=== PATIENT | female | born 1955 | race Caucasian/White ===

== ENCOUNTER 2023-10-31 06:41 | Emergency (ER) | payer MEDICARE, SELFPAY ==
[2023-10-31] VITALS (11 sets, daily range): BP systolic 131–184; BP diastolic 62–84; PULSE 54–68; RESP 18–20; TEMP 36.4; O2SAT 84–100; BMI 30.9
--- NOTE | 2023-10-31 06:51 | DI.CT.S_ITS ---
PROCEDURE: CT ABDOMEN PELVIS W CON INDICATIONS: LLQ ABD PAIN, N/V TECHNIQUE: After the administration of intravenous contrast, axial sections acquired from the lung bases to the pubic symphysis. Coronal and sagittal reformats were performed. For radiation dose reduction, the following was used: automated exposure control, adjustment of mA and/or kV according to patient size. COMPARISON: None. FINDINGS: Image quality: Diagnostic. Lower Chest: Small hiatal hernia. No pleural effusion. ABDOMEN: Liver: No solid mass. Gallbladder: No radiopaque gallstones or wall thickening. Biliary ducts: No biliary dilation. Pancreas: No ductal dilation. Spleen: Size is within normal limits. Adrenal Glands: Right adrenal nodule measuring 2.1 cm, (2/25). Lower density. 2nd right adrenal nodule measuring 0.7 cm, (2/27). Kidneys and Ureters: Obstructing calculus at the left UVJ measuring 0.3 cm, (2/73). Minimal left hydroureter. Mild left hydronephrosis. Minimal left perinephric stranding. No right hydronephrosis. Punctate nonobstructing right kidney stone. No solid mass. No complex renal cystic lesion which requires follow up. Stomach and Bowel: Normal colonic caliber, without significant wall thickening. A few colonic diverticuli. Medication tablet in the colon. Clips in the right lower quadrant the appendix is not seen. Peritoneum: No abnormal intraperitoneal fluid. No free air. Ventral Wall: No significant ventral hernia. Abdominal Nodes: No retroperitoneal or mesenteric adenopathy by size criteria. Vessels: Aorta and inferior vena cava are normal in size. PELVIS: Pelvic Organs: Anteverted uterus. Calcified uterine fibroids. Bladder: No stone. Pelvic Nodes: No enlarged lymph nodes. Miscellaneous: No inguinal hernias are seen. 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 Bones: No aggressive osseous abnormality. L4 intraosseous hemangioma. IMPRESSION: 1. Obstructing calculus at the left UVJ measuring 0.3 cm. Mild left hydronephrosis. 2. Punctate nonobstructing right kidney stone. 3. Right adrenal nodule measuring 2.1 cm. Indeterminate. This could be further characterized with adrenal protocol washout CT or MRI. Dictated by: Ayaz Soriano M.D. on 10/31/2023 at 8:07 Approved by: Ayaz Soriano M.D. on 10/31/2023 at 8:15
[2023-10-31] MEDS: ONDANSETRON 4 MG/2 ML INJ IV (07:02)
[2023-10-31] MEDS: SODIUM CHLORIDE 0.9% 1,000 ML 1000 ML IV (07:04)
[2023-10-31] MEDS: MORPHINE 4 MG/ML INJ IV (07:04)
[2023-10-31 07:05] LABS: Add Manual Diff / Slide Review NO; Basophils Absolute Auto 0 /uL (0-100); Basophils Percent Auto 0.3 % (0-2); Eosinophils Absolute Auto 100 /uL (0-450); Eosinophils Percent Auto 0.9 % (2-4); Hematocrit 41.7 % (36-46); Lymphocytes Absolute Auto 2000 /uL (1100-4500); Lymphocytes Percent Auto 18.7 % (25-40); Mean Corpuscular HGB Conc 33.6 % (30-36); Mean Corpuscular Hemoglobin 30.1 PG (26-34); Mean Corpuscular Volume 89.7 fL (80-100); Monocytes Absolute Auto 600 /uL (0-900); Monocytes Percent Auto 5.4 % (3-14); Neutrophils Absolute Auto 8100 /uL (1500-7000); Neutrophils Percent Auto 74.7 % (50-75); Platelet Count 272 X10^3/uL (150-400); Red Blood Cell Count 4.65 X10^6/uL (4.0-5.2); Red Cell Distribution Width 14.1 % (11.6-14.8); White Blood Cell Count 10.8 X10^3/uL (4.5-11.0)
[2023-10-31 07:20] LABS: Lactate (Lactic Acid) 2.6 mmol/L (0.7-2.1); Lipase 57 U/L (23-300)
[2023-10-31 07:22] LABS: Alanine Aminotransferase 26 IU/L (<35); Albumin 3.9 g/dL (3.5-5.0); Albumin Globulin Ratio 1.4 (1.0-2.8); Alkaline Phosphatase 93 U/L (38-126); Aspartate Aminotransferase 25 IU/L (14-36); BUN Creatinine Ratio 26.3 (6-22); Bilirubin Total 0.5 mg/dL (0.2-1.3); Blood Urea Nitrogen 15 mg/dL (7-17); Carbon Dioxide 28 mmol/L (22-32); Chloride 109 mmol/L (98-107); Estimated Glomerular Filt Rate > 60 mL/min (>60); Globulin 2.8 g/dL (1.7-4.1); Glucose 153 mg/dL (80-110); HEMOLYSIS < 15 (0-50); Potassium 3.7 mmol/L (3.4-5.1); Sodium 140 mmol/L (137-145); Total Protein 6.7 g/dL (6.3-8.2)
[2023-10-31 07:28] LABS: Appearance Urine UA CLEAR; Bilirubin Urine UA NEGATIVE (NEGATIVE); Color Urine UA YELLOW; Glucose Urine UA NEGATIVE (Negative); Ketones Urine UA NEGATIVE (NEGATIVE); Leukocyte Esterase Urine UA NEGATIVE (NEGATIVE); Nitrite Urine UA NEGATIVE (Negative); Occult Blood Urine UA 1+ (Negative); Protein Urine UA TRACE (Negative); Specific Gravity Urine UA >=1.030 (1.000-1.035); Urobilinogen Urine UA 0.2 E.U./dL (0.2)
[2023-10-31 07:31] LABS: Urine Volume 10mL (spun); pH Urine UA 5.5 (4.5-8.0)
[2023-10-31 07:34] LABS: Bacteria Urine None Seen; Culture Indicated Urine Cult Not Indicated; Mucus Urine 1+ (Negative); RBC Urine 1-5/HPF (0-5/HPF); Squamous Epithelial Cell Urine 1-5 /HPF (0-5/HPF); WBC Urine 0-1/HPF (0-5/HPF)
[2023-10-31] MEDS: DROPERIDOL 5 MG/2 ML VIAL 0.625 MG IV (07:50)
[2023-10-31] MEDS: HYDROMORPHONE 0.5 MG INJ IV (07:51)
--- NOTE | 2023-10-31 08:00 | ED_ITS ---
HPI - Abdominal Pain General Chief Complaint: Abdominal Pain Stated Complaint: abd pain Time Seen by Provider: 10/31/23 06:51 Source: patient Mode of arrival: Ambulatory History of Present Illness HPI narrative: This is a 60-year-old female here with the sudden onset of left lower quadrant abdominal pain approximately 3 hours prior to being seen. Describes it as a feeling of ?gas? is accompanied by nausea and vomiting she did not have fevers. Says that she has a sensation of needing to urinate as well. No recent changes in her bowel habits no hematuria had a bowel movement this morning. Still having pain when seen is also still nauseated. Past surgical history remarkable for oophorectomy, no other abdominal surgeries she is unsure of the laterality of her previous oophorectomy. Medical history is otherwise unremarkable without chronic disease or anticoagulation. Related Data Previous Rx's Medication Instructions Recorded ondansetron 4 mg disintegrating 4 mg PO Q6H PRN nausea and 10/31/23 tablet vomiting #14 tabs oxycodone 5 mg tablet 5 mg PO Q4H PRN pain #14 tabs 10/31/23 tamsulosin 0.4 mg capsule 0.4 mg PO BEDTIME #20 caps 10/31/23 Allergies Allergy/AdvReac Type Severity Reaction Status Date / Time No Known Drug Allergies Allergy Unverified 07/31/19 10:14 Patient History Social History Smoking Status: Never smoker Smoking Status: Never smoker Substance Use Type: does not use Exam Initial Vital Signs Initial Vital Signs: Vital Signs Pulse Rate 64 10/31/23 06:49 Blood Pressure 184/84 H 10/31/23 06:49 Pulse Oximetry 99 10/31/23 06:49 Const General: healthy appearing and No acute distress Resp Effort & Inspection: normal respiratory effort and able to speak in complete sentences Auscultation: clear to auscultation bilaterally Cardio Other: Regular rhythm rate no murmur rub or gallop GI Other: Abdomen is soft with normal bowel sounds. There is no CVAT. She is tender in the left lower quadrant with voluntary guarding no palpable mass Skin Other: Warm and dry Neuro General: patient alert and patient oriented x3 Course Orders Ordered: ED Orders 10/31/23 06:51 CT abdomen pelvis w con Stat 10/31/23 06:52 EKG-12 Lead Stat 10/31/23 06:55 CBC Auto Diff [Complete Blood Count AUTO DIFF] Stat CMP [Comprehensive Metabolic Panel] Stat Lactate (Lactic Acid) Stat Lipase Stat 10/31/23 07:11 UA Complete [Urinalysis and Microscopic] Stat Discontinued Medications Droperidol (Droperidol 5 Mg/2 Ml Vial) 0.625 mg IV NOW ONE Stop: 10/31/23 07:33 Last Admin: 10/31/23 07:50 Dose: 0.625 mg Documented By: WALI Hydromorphone HCl (Hydromorphone 0.5 Mg Inj) 0.5 mg IV NOW ONE Stop: 10/31/23 07:33 Last Admin: 10/31/23 07:51 Dose: 0.5 mg Documented By: WALI Sodium Chloride (Normal Saline 0.9%) 1,000 mls @ 1,000 mls/hr IV BOLUS ONE Stop: 10/31/23 07:50 Last Infusion: 10/31/23 07:51 Dose: Infused Documented By: Admin: 10/31/23 07:04 Dose: 1,000 mls/hr Documented By: Morphine Sulfate (Morphine 4 Mg/Ml Inj) 4 mg IV NOW ONE Stop: 10/31/23 06:52 Last Admin: 10/31/23 07:04 Dose: 4 mg Documented By: Ondansetron HCl (Ondansetron 4 Mg/2 Ml Inj) 4 mg IV NOW ONE Stop: 10/31/23 06:52 Last Admin: 10/31/23 07:02 Dose: 4 mg Documented By: Vital Signs Vital signs: Vital Signs - 8 hr 10/31/23 06:49 10/31/23 06:49 10/31/23 06:54 Temperature 97.6 F Pulse Rate 64 61 Respiratory Rate 18 Blood Pressure 184/84 H 184/84 H Pulse Oximetry 99 100 Oxygen Delivery Method Room Air Oxygen Flow Rate 10/31/23 07:00 10/31/23 07:30 10/31/23 07:59 Temperature Pulse Rate 60 61 67 Respiratory Rate Blood Pressure Pulse Oximetry 98 100 97 Oxygen Delivery Method Oxygen Flow Rate 10/31/23 07:59 10/31/23 08:00 10/31/23 08:30 Temperature Pulse Rate 68 66 Respiratory Rate Blood Pressure 131/62 Pulse Oximetry 96 84 L Oxygen Delivery Method Nasal Cannula Oxygen Flow Rate 2 10/31/23 08:35 10/31/23 09:00 10/31/23 09:30 Temperature Pulse Rate 57 L 56 L Respiratory Rate Blood Pressure Pulse Oximetry 96 97 99 Oxygen Delivery Method Nasal Cannula Oxygen Flow Rate 2 10/31/23 09:49 Temperature Pulse Rate 54 L Respiratory Rate 20 Blood Pressure 131/62 Pulse Oximetry 99 Oxygen Delivery Method Room Air Oxygen Flow Rate MDM - Abdominal Pain Lab Data Lab results narrative: CBC with diff and CMP are unremarkable, urinalysis does not show evidence of infection although surprisingly there was also a little hematuria 10/31/23 06:55 10/31/23 06:55 Labs: Lab Results 10/31/23 10/31/23 10/31/23 Range/Units 06:55 07:11 08:50 WBC 10.8 (4.5-11.0) X10^3/uL RBC 4.65 (4.0-5.2) X10^6/uL Hgb 14.0 (12.0-16.0) g/dL Hct 41.7 (36-46) % MCV 89.7 (80-100) fL MCH 30.1 (26-34) PG MCHC 33.6 (30-36) % RDW 14.1 (11.6-14.8) % Plt Count 272 (150-400) X10^3/uL Neut % (Auto) 74.7 (50-75) % Lymph % (Auto) 18.7 L (25-40) % [place] % (Auto) 5.4 (3-14) % Eos % (Auto) 0.9 L (2-4) % Baso % (Auto) 0.3 (0-2) % Neut # (Auto) 8100 H (8010-9381) /uL Lymph # (Auto) 2000 (6929-5219) /uL [place] # (Auto) 600 (0-900) /uL Eos # (Auto) 100 (0-450) /uL Baso # (Auto) 0 (0-100) /uL Sodium 140 (137-145) mmol/L Potassium 3.7 (3.4-5.1) mmol/L Chloride 109 H (98-107) mmol/L Carbon Dioxide 28 (22-32) mmol/L BUN 15 (7-17) mg/dL Creatinine 0.57 (0.52-1.04) mg/dL Estimated GFR > 60 (>60) mL/min BUN/Creatinine Ratio 26.3 H (6-22) Glucose 153 H (80-110) mg/dL Lactate 2.6 H 1.5 (0.7-2.1) mmol/L Calcium 9.0 (8.4-10.2) mg/dL Total Bilirubin 0.5 (0.2-1.3) mg/dL AST 25 (14-36) IU/L ALT 26 (<35) IU/L Alkaline Phosphatase 93 (38-126) U/L Total Protein 6.7 (6.3-8.2) g/dL Albumin 3.9 (3.5-5.0) g/dL Globulin 2.8 (1.7-4.1) g/dL Albumin/Globulin Ratio 1.4 (1.0-2.8) Lipase 57 (23-300) U/L Urine Color Yellow Urine Appearance Clear Urine pH 5.5 (4.5-8.0) Ur Specific [place] >=1.030 H (1.000-1.035) Urine Protein Trace H (Negative) Urine Glucose (UA) Negative (Negative) g/dL Urine Ketones Negative (NEGATIVE) Urine Occult Blood 1+ H (Negative) Urine Nitrate Negative (Negative) Urine Bilirubin Negative (NEGATIVE) Urine Urobilinogen 0.2 (0.2) E.U./dL Ur Leukocyte Esterase Negative (NEGATIVE) Urine RBC 1-5/hpf (0-5/HPF) Urine WBC 0-1/hpf (0-5/HPF) Ur Squamous Epith Cells 1-5 /hpf (0-5/HPF) Urine Bacteria None seen (None) Urine Mucus 1+ H (Negative) Ur Culture Indicated? Cult not indicated Vol Urine Centrifuged 10ml (spun) Point of care testing: Urine Dip Bedside Urine Glucose Negative Bedside Urine Bilirubin - Negative Bedside Urine Ketone - Negative Urine Specific [place] 1.030 Bedside Urine Occult Blood ++ Bedside Urine pH 6.0 Bedside Urine Protein +/- 15 Bedside Urine Urobilinogen - Negative Bedside Urine Nitrite - Negative Bedside Urine Leukocytes +/- [address] scan - abdomen/pelvis: My Impression: Left hydronephrosis with pelvic calcifications, probable ureteral stone Radiologist's Impression: [address] [address] [address] Scan Report Signed Patient: Ashley Murray MR#: [id number] : 1955 Acct:[id number] Age/Sex: 68 / F Date of Service: 10/31/23 Loc: ED Accession Number: [id number] Procedure: CT abdomen pelvis w con Ordering Provider: Nahed Haro MD PROCEDURE: CT ABDOMEN PELVIS W CON INDICATIONS: LLQ ABD PAIN, N/V TECHNIQUE: After the administration of intravenous contrast, axial sections acquired from the lung bases to the pubic symphysis. Coronal and sagittal reformats were performed. For radiation dose reduction, the following was used: automated exposure control, adjustment of mA and/or kV according to patient size. COMPARISON: None. FINDINGS: Image quality: Diagnostic. Lower Chest: Small hiatal hernia. No pleural effusion. ABDOMEN: Liver: No solid mass. Gallbladder: No radiopaque gallstones or wall thickening. Biliary ducts: No biliary dilation. Pancreas: No ductal dilation. Spleen: Size is within normal limits. Adrenal Glands: Right adrenal nodule measuring 2.1 cm, (2/25). Lower density. 2nd right adrenal nodule measuring 0.7 cm, (2/27). Kidneys and Ureters: Obstructing calculus at the left UVJ measuring 0.3 cm, (2/73). Minimal left hydroureter. Mild left hydronephrosis. Minimal left perinephric stranding. No right hydronephrosis. Punctate nonobstructing right kidney stone. No solid mass. No complex renal cystic lesion which requires follow up. Stomach and Bowel: Normal colonic caliber, without significant wall thickening. A few colonic diverticuli. Medication tablet in the colon. Clips in the right lower quadrant the appendix is not seen. Peritoneum: No abnormal intraperitoneal fluid. No free air. Ventral Wall: No significant ventral hernia. Abdominal Nodes: No retroperitoneal or mesenteric adenopathy by size criteria. Vessels: Aorta and inferior vena cava are normal in size. PELVIS: Pelvic Organs: Anteverted uterus. Calcified uterine fibroids. Bladder: No stone. Pelvic Nodes: No enlarged lymph nodes. Miscellaneous: No inguinal hernias are seen. 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 Bones: No aggressive osseous abnormality. L4 intraosseous hemangioma. IMPRESSION: 1. Obstructing calculus at the left UVJ measuring 0.3 cm. Mild left hydronephrosis. 2. Punctate nonobstructing right kidney stone. 3. Right adrenal nodule measuring 2.1 cm. Indeterminate. This could be further characterized with adrenal protocol washout CT or MRI. Dictated by: Ayaz Soriano M.D. on 10/31/2023 at 8:07 ECG Data Interpretation: ECG shows normal sinus rhythm at [address] segment changes possible old anterior infarct MDM Narrative Medical decision making narrative: 68-year-old woman with left lower quadrant abdominal pain. Differential diagnosis includes pyelonephritis, ureteral stone, diverticulitis, bowel obstruction. The patient is nontoxic with reassuring labs CT shows left hydronephrosis and a left ureteral calculus at the UVJ. She does not appear to have an infection upstream of the stone. I provided prescriptions for oxycodone Flomax and Zofran recommended she follow up with Urology and primary care. Discharge Plan Departure Patient Disposition: Home Clinical Impression: Left ureteral calculus Abdominal pain Qualifiers: Abdominal location: left lower quadrant Qualified Code(s): R10.32 - Left lower quadrant pain Activity Restrictions/Additional Instructions: Emergency department workup shows that you have a left ureteral stone. This is almost certainly the cause of your symptoms. Get adequate fluids, you can use ibuprofen 600 mg up to 3 times a day as needed for pain. Additionally I have sent a prescription for oxycodone to use as needed for pain, ondansetron to use as needed for nausea and tamsulosin which should help the stone pass. Make an appointment to follow up soon with your primary care provider. Strain your urine seeing you know when the stone passes. I have provided contact information for Urology, I recommend that you make an appointment with them also, if the stone passes spontaneously it could be canceled. If you are having uncontrolled pain, frequent vomiting or fevers return to the emergency department. Prescriptions: New oxycodone 5 mg tablet 5 mg PO Q4H PRN (Reason: pain) Qty: 14 0RF tamsulosin 0.4 mg capsule 0.4 mg PO BEDTIME Qty: 20 0RF ondansetron 4 mg tablet,disintegrating 4 mg PO Q6H PRN (Reason: nausea and vomiting) Qty: 14 0RF Stand Alone Forms: Patient Portal/API
--- NOTE | 2023-10-31 08:24 | PC.NURSE ---
Pt states that her nausea has resolved and her abd pain has improved to a 4/10. Pt is sitting upright in bed and a&ox4.
[2023-10-31 08:36] LABS: Reflexed Lactate in 2 Hours Y
[2023-10-31 09:03] LABS: Lactate 2HR (Lactic Acid Rflx) 1.5 mmol/L (0.7-2.1)
== END 2023-10-31 09:50 | disposition home or self-care (01) ==
PROVIDERS: Emergency Medicine; Emergency Provider Emergency Medicine
DX: N20.1 Calculus of ureter (principal); R10.32 Left lower quadrant pain; R11.2 Nausea with vomiting, unspecified
CPT/HCPCS: 36415; 74177; 80053; 81001; 81003; 83605; 83690; 85025; 93005; 93010; 96361; 96374; 96375; 99284; 99285; J1170; J1790; J2270; J2405; Q9967

== ENCOUNTER 2024-10-21 07:02 | Emergency (ER) | payer MEDICARE, SELFPAY ==
[2024-10-21 07:29] VITALS: BP 148/65; PULSE 61; RESP 16; TEMP 36.6; O2SAT 99; BMI 30.9
[2024-10-21 07:49] LABS: Add Manual Diff / Slide Review NO; Basophils Absolute Auto 0 /uL (0-100); Basophils Percent Auto 0.6 % (0-2); Eosinophils Absolute Auto 100 /uL (0-450); Eosinophils Percent Auto 1.8 % (2-4); Hematocrit 43.9 % (36-46); Hemoglobin 14.6 g/dL (12.0-16.0); Lymphocytes Absolute Auto 1800 /uL (1100-4500); Lymphocytes Percent Auto 22.1 % (25-40); Mean Corpuscular HGB Conc 33.2 % (30-36); Mean Corpuscular Volume 90.3 fL (80-100); Monocytes Absolute Auto 500 /uL (0-900); Monocytes Percent Auto 6.1 % (3-14); Neutrophils Absolute Auto 5700 /uL (1500-7000); Neutrophils Percent Auto 69.4 % (50-75); Platelet Count 272 X10^3/uL (150-400); Red Blood Cell Count 4.86 X10^6/uL (4.0-5.2); Red Cell Distribution Width 13.7 % (11.6-14.8); White Blood Cell Count 8.2 X10^3/uL (4.5-11.0)
--- NOTE | 2024-10-21 07:57 | ED_ITS ---
HPI - Abdominal Pain General Chief Complaint: Abdominal Pain Stated Complaint: Per patient , Passing a Kidney stone Time Seen by Provider: 10/21/24 07:47 Source: patient Mode of arrival: Ambulatory History of Present Illness HPI narrative: patient brought here by for acute onset 4:00 a.m. today right flank pain with nausea and sweating. Radiates from right flank to right lower quadrant. History of kidney stone 1 year ago. She was able to pass out. No surgeries. No follow up for Urology. Patient states feels the same pain she did last year. Related Data Previous Rx's Medication Instructions Recorded ondansetron 4 mg disintegrating 4 mg PO Q6H PRN nausea and 10/31/23 tablet vomiting #14 tabs oxycodone 5 mg tablet 5 mg PO Q4H PRN pain #14 tabs 10/31/23 tamsulosin 0.4 mg capsule 0.4 mg PO BEDTIME #20 caps 10/31/23 cefdinir 300 mg capsule 300 mg PO BID #10 caps 10/21/24 hydrocodone 5 mg-acetaminophen 325 1 tab PO Q6H PRN pain #20 tabs 10/21/24 mg tablet ibuprofen 600 mg tablet 600 mg PO Q6H PRN fever or pain 10/21/24 #24 tabs ondansetron 4 mg disintegrating 4 mg PO Q8H PRN nausea and 10/21/24 tablet vomiting #20 tabs tamsulosin 0.4 mg capsule 0.4 mg PO DAILY #7 caps 10/21/24 Allergies Allergy/AdvReac Type Severity Reaction Status Date / Time No Known Drug Allergies Allergy Verified 10/21/24 07:28 Review of Systems Review of Systems Narrative: GENERAL: Negative chills, fatigue, malaise, fever, sweats. HEENT: Negative sinus pain, ear pain, sore throat RESPIRATORY: Negative dyspnea, cough CARDIOVASCULAR: Negative chest pain, palpitations GASTROINTESTINAL: Positive nausea, negative vomiting, positiveabdominal pain : Negative dysuria, frequency, hematuria MUSCULOSKELETAL: Negative muscle or bony pain SKIN: Negative rash, skin lesions NEUROLOGIC: Negative weakness, numbness ROS Unobtainable: All systems reviewed & are unremarkable except as noted in HPI and below Patient History Social History Smoking Status: Never smoker Smoking Status: Never smoker Exam Narrative Exam Narrative: GENERAL: in no distress, not toxic not dyspneic HEAD: Normocephalic. EYES: Pupils equal round ENT: Mucous membranes moist. NECK: Trachea midline. CARDIOVASCULAR: Regular rate and rhythm RESPIRATORY: Clear to auscultation. Breath sounds equal bilaterally. No wheezes, rales, or rhonchi. GASTROINTESTINAL: Abdomen soft, non-tender no peritoneal signs no guarding or rebound. Bowel sounds are present. No CVA tenderness. EXTREMITIES: No gross deformities. BACK: No flank tenderness. NEURO: AOx4. Clear speech SKIN: Warm and dry PSYCH: Not anxious, is cooperative Initial Vital Signs Initial Vital Signs: Vital Signs Temperature 97.9 F 10/21/24 07:29 Pulse Rate 61 10/21/24 07:29 Respiratory Rate 16 10/21/24 07:29 Blood Pressure 148/65 H 10/21/24 07:29 Pulse Oximetry 99 10/21/24 07:29 Oxygen Delivery Method Room Air 10/21/24 07:29 Course Orders Ordered: Discontinued Medications Cefdinir (Cefdinir 300 Mg Capsule) 300 mg PO NOW ONE Stop: 10/21/24 09:07 Last Admin: 10/21/24 09:10 Dose: 300 mg Documented By: MIKE Sodium Chloride (Normal Saline 0.9%) 1,000 mls @ 1,000 mls/hr IV BOLUS ONE Stop: 10/21/24 09:31 Last Admin: 10/21/24 08:38 Dose: 1,000 mls/hr Documented By: MIKE Ketorolac Tromethamine (Ketorolac 30 Mg/Ml Vial) 15 mg IV NOW ONE Stop: 10/21/24 07:57 Last Admin: 10/21/24 08:21 Dose: 15 mg Documented By: MIKE Ondansetron HCl (Ondansetron 4 Mg/2 Ml Inj) 4 mg IV NOW PRN PRN Reason: Nausea And Vomiting Ondansetron HCl (Ondansetron 4 Mg Odt) 4 mg PO NOW PRN PRN Reason: Nausea And Vomiting Tamsulosin HCl (Tamsulosin 0.4 Mg Capsule) 0.4 mg PO NOW ONE Stop: 10/21/24 09:02 Last Admin: 10/21/24 09:10 Dose: 0.4 mg Documented By: MIKE Vital Signs Vital signs: Vital Signs - 8 hr 10/21/24 07:29 Temperature 97.9 F Pulse Rate 61 Respiratory Rate 16 Blood Pressure 148/65 H Pulse Oximetry 99 Oxygen Delivery Method Room Air MDM - Abdominal Pain Lab Data 10/21/24 07:41 10/21/24 07:41 Labs: Lab Results 10/21/24 10/21/24 Range/Units 07:41 08:14 WBC 8.2 (4.5-11.0) X10^3/uL RBC 4.86 (4.0-5.2) X10^6/uL Hgb 14.6 (12.0-16.0) g/dL Hct 43.9 (36-46) % MCV 90.3 (80-100) fL MCH 30.0 (26-34) PG MCHC 33.2 (30-36) % RDW 13.7 (11.6-14.8) % Plt Count 272 (150-400) X10^3/uL Neut % (Auto) 69.4 (50-75) % Lymph % (Auto) 22.1 L (25-40) % [place] % (Auto) 6.1 (3-14) % Eos % (Auto) 1.8 L (2-4) % Baso % (Auto) 0.6 (0-2) % Neut # (Auto) 5700 (3673-4327) /uL Lymph # (Auto) 1800 (0607-7061) /uL [place] # (Auto) 500 (0-900) /uL Eos # (Auto) 100 (0-450) /uL Baso # (Auto) 0 (0-100) /uL Sodium 139 (137-145) mmol/L Potassium 4.4 (3.4-5.1) mmol/L Chloride 106 (98-107) mmol/L Carbon Dioxide 24 (22-32) mmol/L BUN 17 (7-17) mg/dL Creatinine 0.77 (0.52-1.04) mg/dL Estimated GFR > 60 (>60) mL/min BUN/Creatinine Ratio 22.1 H (6-22) Glucose 130 H (80-110) mg/dL Calcium 9.1 (8.4-10.2) mg/dL Total Bilirubin 0.6 (0.2-1.3) mg/dL AST 27 (14-36) IU/L ALT 25 (<35) IU/L Alkaline Phosphatase 89 (38-126) U/L Total Protein 6.9 (6.3-8.2) g/dL Albumin 4.3 (3.5-5.0) g/dL Globulin 2.6 (1.7-4.1) g/dL Albumin/Globulin Ratio 1.7 (1.0-2.8) Lipase 64 (23-300) U/L Urine Color [place] Urine Appearance Cloudy Urine pH 5.0 (4.5-8.0) Ur Specific [place] 1.020 (1.000-1.035) Urine Protein 2+ H (Negative) Urine Glucose (UA) Negative (Negative) g/dL Urine Ketones Trace H (NEGATIVE) Urine Occult Blood 3+ H (Negative) Urine Nitrate Positive H (Negative) Urine Bilirubin 1+ H (NEGATIVE) Ur Bilirubin Confirm Negative (Negative) Urine Urobilinogen 0.2 (0.2) E.U./dL Ur Leukocyte Esterase Negative (NEGATIVE) Urine RBC 30-100/hpf H (0-5/HPF) Urine WBC 1-5/hpf (0-5/HPF) Ur Squamous Epith Cells None seen (0-5/HPF) Urine Bacteria Many (>30) H (None) Ur Culture Indicated? Specimen cultured Vol Urine Centrifuged Low vol <10ml (spun) A Imaging Data CT scan - abdomen/pelvis: Radiologist's Impression: [place] [address] CT Scan Report Signed Patient: Ashley Murray MR#: [id number] : 1955 Acct:[id number] Age/Sex: 69 / F Date of Service: 10/21/24 Loc: ED Accession Number: [id number] Procedure: CT kidney ureter bladder (KUB) Ordering Provider: Enzo Jeffries MD PROCEDURE: CT KIDNEY URETER BLADDER (KUB) INDICATIONS: right flank pain TECHNIQUE: Axial sections were acquired from the lung bases to the pubic symphysis. Coronal and sagittal reformats were performed. For radiation dose reduction, the following was used: automated exposure control, adjustment of mA and/or kV according to patient size. COMPARISON: None. FINDINGS: Image quality: Diagnostic. Lower Chest: Small hiatal hernia. URINARY: Right Kidney: Multiple punctate parenchymal calculi. Mild hydronephrosis. Right Ureter: A 3 mm stone obstructs the right ureter at the right UPJ. Left Kidney: Very tiny punctate nonobstructing stones. Peripelvic cysts. No hydronephrosis. Left Ureter: No hydroureter. Bladder: Normal wall thickness. No stones. ABDOMEN: Liver: No contour-deforming solid mass. Gallbladder: No radiopaque gallstones or wall thickening. Biliary ducts: No biliary dilation. Pancreas: No ductal dilation. Spleen: Size is within normal limits. Adrenal Glands: No adrenal nodules. Stomach and Bowel: Normal colonic caliber, without significant wall thickening. Presumed remote appendectomy. Peritoneum: No abnormal intraperitoneal fluid. No free air. Ventral Wall: No hernia. Abdominal Nodes: No enlarged retroperitoneal or mesenteric lymph nodes. Vessels: Aorta and inferior vena cava are normal in size. PELVIS: Pelvic Organs: Incidental uterine fibroids with degenerative calcifications.. Pelvic Nodes: Unremarkable. Miscellaneous: No inguinal hernias are seen. Right gluteal region lipoma Bones: Lumbar degenerative change. No lytic or blastic bony lesions. No compression fractures. . IMPRESSION: 1. A 3 mm stone obstructs the right ureter at the right ureteropelvic junction. This results in mild right hydronephrosis. 2. Tiny punctate bilateral renal stones. 3. Incidental note made of a lipoma predominantly in the right gluteal region. Dictated by: Alex Griffiths M.D. on 10/21/2024 at 8:19 Approved by: Alex Griffiths M.D. on 10/21/2024 at 8:35 [facility] Narrative Medical decision making narrative: patient brought here by for acute onset 4:00 a.m. today right flank pain with nausea and sweating. Radiates from right flank to right lower quadrant. History of kidney stone 1 year ago. She was able to pass out. No surgeries. No follow up for Urology. Patient states feels the same pain she did last year. After history and exam Toradol CBC CMP urinalysis CT KUB Zofran [facility] Medical records reviewed: October 31, [address] imaging left sided kidney stone Differential considered: Includes but not limited to kidney stone ureteral stone UTI pyelonephritis appendicitis Lab Test results independently reviewed as above. Pertinent findings: WBC 8.2 sodium 139 potassium 4.4 BUN 17 creatinine 0.77, urinalysis positive blood positive nitrate Imaging studies independently reviewed: CT KUB 3 mm right UPJ stone Consultations: not indicated at this time Treatments: Toradol Zofran normal saline Flomax cefdinir Re-evaluations: 9:00 a.m.. Updated patient results. Pain is controlled. She agrees with treatment plan referral for Urology provided. Antibiotics have been started. Return precautions reviewed. She desires discharge home. Discussion: Appropriate for discharge home exam is reassuring. Return precautions reviewed with patient. Nontoxic at discharge. is driving. Referral for Urology provided. Antibiotics have been started for possible early UTI. Diagnosis: Right kidney stone Discharge Plan Departure Patient Disposition: Home Clinical Impression: Calculus of kidney Instructions: DI for Kidney Stones Activity Restrictions/Additional Instructions: you do have a 3 mm kidney stone on the right side that has just started to descend. Please call provided urology office today for follow up regarding your kidney stone. Keep well hydrated. Return if worse if any questions or concerns. No driving operating machinery when taking prescribed pain medication. Prescriptions have been provided for you. Return if worse if any questions or concerns. Prescriptions: New hydrocodone-acetaminophen 5-325 mg tablet 1 tab PO Q6H PRN (Reason: pain) Qty: 20 0RF tamsulosin 0.4 mg capsule 0.4 mg PO DAILY Qty: 7 0RF ibuprofen 600 mg tablet 600 mg PO Q6H PRN (Reason: fever or pain) Qty: 24 0RF ondansetron 4 mg tablet,disintegrating 4 mg PO Q8H PRN (Reason: nausea and vomiting) Qty: 20 0RF cefdinir 300 mg capsule 300 mg PO BID Qty: 10 0RF No Action oxycodone 5 mg tablet 5 mg PO Q4H PRN (Reason: pain) Qty: 14 0RF tamsulosin 0.4 mg capsule 0.4 mg PO BEDTIME Qty: 20 0RF ondansetron 4 mg tablet,disintegrating 4 mg PO Q6H PRN (Reason: nausea and vomiting) Qty: 14 0RF Referrals: Brian Mcclendon DO [Physician] - Stand Alone Forms: Patient Portal/API/Survey
[2024-10-21 08:02] LABS: Alanine Aminotransferase 25 IU/L (<35); Albumin 4.3 g/dL (3.5-5.0); Albumin Globulin Ratio 1.7 (1.0-2.8); Alkaline Phosphatase 89 U/L (38-126); Aspartate Aminotransferase 27 IU/L (14-36); BUN Creatinine Ratio 22.1 (6-22); Bilirubin Total 0.6 mg/dL (0.2-1.3); Blood Urea Nitrogen 17 mg/dL (7-17); Calcium 9.1 mg/dL (8.4-10.2); Carbon Dioxide 24 mmol/L (22-32); Chloride 106 mmol/L (98-107); Estimated Glomerular Filt Rate > 60 mL/min (>60); Globulin 2.6 g/dL (1.7-4.1); Glucose 130 mg/dL (80-110); HEMOLYSIS < 15 (0-50); Lipase 64 U/L (23-300); Potassium 4.4 mmol/L (3.4-5.1); Sodium 139 mmol/L (137-145); Total Protein 6.9 g/dL (6.3-8.2)
[2024-10-21] MEDS: KETOROLAC 30 MG/ML VIAL 15 MG IV (08:21)
[2024-10-21] MEDS: SODIUM CHLORIDE 0.9% 1,000 ML 1000 ML IV (08:38)
[2024-10-21 08:45] LABS: Appearance Urine UA CLOUDY; Bilirubin Urine UA 1+ (NEGATIVE); Color Urine UA ORANGE; Glucose Urine UA NEGATIVE (Negative); Ketones Urine UA TRACE (NEGATIVE); Leukocyte Esterase Urine UA NEGATIVE (NEGATIVE); Nitrite Urine UA POSITIVE (Negative); Occult Blood Urine UA 3+ (Negative); Protein Urine UA 2+ (Negative); Urobilinogen Urine UA 0.2 E.U./dL (0.2)
[2024-10-21 08:49] LABS: Ictotest Urine Negative (Negative); Urine Volume Low Vol <10mL (spun)
[2024-10-21 08:50] LABS: Bacteria Urine Many (>30); Culture Indicated Urine Specimen Cultured; RBC Urine 30-100/HPF (0-5/HPF); Squamous Epithelial Cell Urine None Seen (0-5/HPF); WBC Urine 1-5/HPF (0-5/HPF)
[2024-10-21] MEDS: TAMSULOSIN 0.4 MG CAPSULE PO (09:10)
[2024-10-21] MEDS: CEFDINIR 300 MG CAPSULE PO (09:10)
[2024-10-21 09:21] VITALS: BP 128/61; PULSE 65; RESP 16; TEMP 36.6; O2SAT 98
--- NOTE | 2024-10-21 09:22 | PC.NURSE ---
Pt given strainer, hat for commode, and urine cup to catch stone
== END 2024-10-21 09:22 | disposition home or self-care (01) ==
PROVIDERS: Emergency Provider Emergency Medicine
DX: N20.0 Calculus of kidney (principal); Z87.442 Personal history of urinary calculi
CPT/HCPCS: 74176; 80053; 81001; 83690; 85025; 87086; 96374; 99284; J1885

== ENCOUNTER → 2024-11-29 09:08 | Outpatient (CLI) | payer MEDICARE, SELFPAY ==
[2024-11-29 10:52] LABS: Hemoglobin A1C% w Est Avg Glu 5.4 % (4.0-6.0)
[2024-11-29 11:03] LABS: Cholesterol 218 mg/dL (140-199); HDL Cholesterol 62 mg/dL (40-60); LDL Cholesterol Calculated 138 mg/dL (<100); Triglycerides 90 mg/dL (35-150)
== END ==
PROVIDERS: PCP Family Medicine; Referring Provider Family Medicine; Visit Provider Family Medicine
DX: R73.09 Other abnormal glucose (principal); I10 Essential (primary) hypertension
CPT/HCPCS: 36415; 80061; 83036

== ENCOUNTER → 2024-12-02 10:36 | Outpatient (CLI) | payer MEDICARE, SELFPAY ==
--- NOTE | 2024-12-02 10:37 | DI.RAD.S_ITS ---
PROCEDURE: XR DEXA AXIAL SKELETON INDICATIONS: Post menopause COMPARISON: None. FINDINGS: Lumbar Spine: Bone mineral density 0.958 g/cm2, T score -0.8. Left Femoral Neck: Bone mineral density 0.592 g/cm2, T score -2.3. Left Hip: Bone mineral density 0.820 g/cm2, T score -1.0. Fracture Risk Calculation (when applicable): 10-year fracture risk of a major osteoporotic fracture 12% (19% with history of prior fracture) and of a hip fracture 2.6% (4% with history of prior fracture) (T score greater or equal to -1.0 to: NORMAL) (T score from -1.1 to -2.4: OSTEOPENIA) (T score less than or equal to -2.5: OSTEOPOROSIS) IMPRESSION: Osteopenia Follow-up guidelines as follows: Osteoporosis: Consider a repeat DEXA and Vertebral Fracture Assessment (VFA) exam in 2 years or sooner if medically necessary, to reassess this patient's status. Osteopenia: Consider a repeat DEXA in 2-3 years to reassess this patient's status, or if there is a new clinical indication. Normal: Consider a repeat DEXA in 5 years or sooner, or if there is a new clinical indication. All treatment decisions require clinical judgment and consideration of individual patient factors, including patient preferences, comorbidities, previous drug use, risk factors not captured in the FRAX model (e.g., frailty, falls, vitamin D deficiency, increased bone turnover, interval significant decline in bone density ) and possible under- or over-estimation of fracture risk by FRAX. In addition, the NOF Guide recommends that FDA-approved medical therapies be considered in postmenopausal women and men age >= 50 years with a: * Hip or vertebral (clinical or morphometric) fracture * T-score of <=-2.5 at the spine or hip * Ten-year fracture probability by FRAX of >= 3% for hip fracture or >=20% for major osteoporotic fracture. Approved by: Sana Gonzales M.D.,Ph.D. on 12/02/2024 at 16:26
== END ==
PROVIDERS: PCP Family Medicine; Referring Provider Family Medicine; Visit Provider Family Medicine
DX: Z78.0 Asymptomatic menopausal state (principal); M85.852 Other specified disorders of bone density and structure, left thigh
CPT/HCPCS: 77080